=== PATIENT | male | born 1960 | race Caucasian/White ===

== ENCOUNTER 2018-03-15 11:11 | Inpatient (IN) | payer OTHER ==
[2018-03-15 12:28] VITALS: BMI 40.2
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
[2018-03-15] MEDS ORDERED: MAGNESIUM HYDROX 2400MG/30ML ORAL SUSPENSION 30 ML CUP PO PRN (13:42)
[2018-03-15] MEDS ORDERED: hydrOXYzine PAMOATE 50 MG CAPSULE (FP) PO PRN (13:42)
[2018-03-15] MEDS ORDERED: P-EPHED 60MG/TRIPROLIDI 2.5MG TABLET PO PRN (13:42)
[2018-03-15] MEDS ORDERED: chlordiazePOXIDE HCL 25 MG CAPSULE PO PRN (13:42)
[2018-03-15] MEDS ORDERED: NICOTINE POLACRILEX 2 MG GUM BUC PRN (13:42)
[2018-03-15] MEDS ORDERED: MAG HYDROX/AL HYDROX/SIMETH 30 ML UNIT-DOSE CUP PO PRN (13:42)
[2018-03-15] MEDS ORDERED: MENTHOL/PHENOL 1 EACH UD MM PRN (13:42)
[2018-03-15] MEDS ORDERED: ACETAMINOPHEN 325 MG TABLET (FP) PO PRN (13:42)
[2018-03-15] MEDS ORDERED: IBUPROFEN 400 MG TABLET (FP) PO PRN (13:42)
[2018-03-15] MEDS ORDERED: guaiFENesin/D-METHORPHAN HB 10 ML UNIT-DOSE CUPS PO PRN (13:42)
[2018-03-15] MEDS ORDERED: MAGNESIUM CITRATE 300 ML BOTTLE PO PRN (13:42)
[2018-03-15] MEDS ORDERED: LOPERAMIDE HCL 2 MG CAPSULE PO PRN (13:42)
[2018-03-15] MEDS ORDERED: ALBUTEROL SO4 0.083% IH SOL 2.5 MG/3 ML VIAL.NEB. NEB PRN (13:53)
[2018-03-15] MEDS ORDERED: chlordiazePOXIDE HCL 25 MG CAPSULE PO ONE (14:10)
[2018-03-15] MEDS ORDERED: ALBUTEROL SO4 8 GM HFA INHALER IH PRN (14:28)
--- NOTE | 2018-03-15 15:37 | EKG ---
Test Reason : Blood Pressure : / mmHG Vent. Rate : 086 BPM Atrial Rate : 086 BPM P-R Int : 130 ms QRS Dur : 096 ms QT Int : 370 ms P-R-T Axes : 054 005 184 degrees QTc Int : 442 ms NORMAL SINUS RHYTHM LEFT VENTRICULAR HYPERTROPHY WITH REPOLARIZATION ABNORMALITY ABNORMAL ECG NO PREVIOUS ECGS AVAILABLE Confirmed by BING CLINTON, KISHOR ([id number]) on 03/15/2018 3:36:53 PM Referred By: Confirmed By:KISHOR SMART MD
[2018-03-15] MEDS: chlordiazePOXIDE HCL 25 MG CAPSULE PO SCH ×2 (17:08→22:09)
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
[2018-03-15 17:49] LABS: URINE APPEARANCE CLEAR; URINE BILIRUBIN NEGATIVE (<2.0 mg/dL); URINE COLOR STRAW; URINE GLUCOSE (UA) NEGATIVE (NEGATIVE); URINE KETONE NEGATIVE (NEGATIVE); URINE LEUK ESTERASE NEGATIVE (NEGATIVE); URINE NITRITE NEGATIVE (NEGATIVE); URINE PROTEIN NEGATIVE (NEGATIVE); URINE UROBILINOGEN NEGATIVE mg/dL (0.2-1.0)
[2018-03-15] MEDS ORDERED: MELATONIN 5 MG TABLETS PO PRN (22:00)
[2018-03-15] MEDS: THIAMINE HCL 100 MG TABLET (FP) PO SCH (22:09)
[2018-03-15] MEDS: BENZTROPINE MESYLATE 1 MG TABLET (FP) PO SCH (22:09)
[2018-03-15] MEDS: HALOPERIDOL 5 MG TABLET (FP) PO SCH (22:09)
[2018-03-15] MEDS: BUDESONIDE/FORMETEROL FUMARATE 160/4.5 mcg INHALER IH SCH (22:10)
[2018-03-16] MEDS: chlordiazePOXIDE HCL 25 MG CAPSULE PO SCH ×4 (05:06→22:12)
[2018-03-16] MEDS: LEVOTHYROXINE NA 25 MCG TABLET (FP) PO SCH (06:30)
[2018-03-16] MEDS ORDERED: PATIENT'S OWN MEDICATION (NON-FORMULARY) (Lisinopril/Hydrochlorothiazide [Lisinopril-Hctz PO SCH (10:00)
[2018-03-16] MEDS: PRENATAL VITAMINS W/ FOLIC ACID TABLET (FP) PO SCH (10:24)
[2018-03-16] MEDS: CITALOPRAM HYDROBROMIDE 20 MG TABLET (FP) PO SCH (10:24)
[2018-03-16] MEDS: HYDROCHLOROTHIAZIDE 12.5 MG CAPSULE (FP) PO SCH (10:24)
[2018-03-16] MEDS: BENZTROPINE MESYLATE 1 MG TABLET (FP) PO SCH ×2 (10:24→22:12)
[2018-03-16] MEDS: HALOPERIDOL 5 MG TABLET (FP) PO SCH ×2 (10:24→23:23)
[2018-03-16] MEDS: ASPIRIN COATED 81 MG TABLET.EC PO SCH (10:24)
[2018-03-16] MEDS: NICOTINE 21 MG/24 HOURS TOPICAL PATCH TD SCH (10:24)
[2018-03-16] MEDS: LISINOPRIL 20 MG TABLET (FP) PO SCH (10:25)
[2018-03-16] MEDS: BUDESONIDE/FORMETEROL FUMARATE 160/4.5 mcg INHALER IH SCH ×2 (10:25→22:12)
--- NOTE | 2018-03-16 11:01 | PN ---
S CIWA - CIWA Score Nausea/Vomitin Muscle Tremors: 2 Anxiety: 2 Agitation: 1-Slight > Activity Paroxysmal Sweats: 2 Orientation: 0-Oriented Tacttile Disturbances: 0-None Auditory Disturbances: 0-None Visual Disturbances: 0-None Headache: 3-Moderate CIWA-Ar Total Score: 13 BHS Progress Note (SOAP) Subjective: PATIENT PRESENTS WITH HEADACHE, SHAKES AND ANXIETY. Objective: 03/16/18 10:58 Laboratory Tests 03/15/18 15:30 Urine Color Straw Urine Appearance Clear Urine pH 6.0 Ur Specific [place] 1.005 L Urine Protein Negative Urine Glucose (UA) Negative Urine Ketones Negative Urine Blood Negative Urine Nitrite Negative Urine Bilirubin Negative Urine Urobilinogen Negative Ur Leukocyte Esterase Negative Vital Signs Temperature 97.4 F L 03/16/18 09:18 Pulse Rate 90 03/16/18 09:18 Respiratory Rate 18 03/16/18 09:18 Blood Pressure 135/88 03/16/18 09:18 O2 Sat by Pulse Oximetry (%) SKIN WARM AND MOIST CAR S1S2 RESP CTA BL EXT +TREMORS, FULL ROM ALERT AND ORIENTED Assessment: 03/16/18 11:01 WITHDRAWAL SYNDROME Plan: CONTINUE DETOX ENCOURAGE ORAL FLUIDS CONTINUE TO MONITOR CLINICALLY
[2018-03-16 11:11] LABS: HEMATOCRIT 48.2 % (35.4-49); HEMOGLOBIN 15.4 GM/dL (11.7-16.9); MCH 31.3 pg (25.7-33.7); MEAN CELL VOLUME 97.8 fl (80-96); MEAN PLT VOLUME 10.3 fl (7.5-11.1); PLATELET COUNT 264 K/MM3 (134-434); RBC 4.93 M/mm3 (4.00-5.60); RDW 15.1 % (11.9-15.9); WHITE BLOOD COUNT 13.4 K/mm3 (4.0-10.0)
[2018-03-16 11:26] LABS: ALBUMIN 3.8 g/dl (3.4-5.0); ALK PHOS 79 U/L (45-117); ANION GAP 7 MMOL/L (8-16); BILIRUBIN,TOTAL 0.3 mg/dL (0.2-1); BLOOD UREA NITROGEN 12 mg/dL (7-18); CALCIUM 9.8 mg/dL (8.5-10.1); CHLORIDE 104 mmol/L (98-107); CO2 27 mmol/L (21-32); CREATININE 0.9 mg/dL (0.55-1.3); GLUCOSE,RANDOM 83 mg/dL (74-106); POTASSIUM 5.3 mmol/L (3.5-5.1); SGOT/AST 19 U/L (15-37); SGPT/ALT 25 U/L (13-61); SODIUM 138 mmol/L (136-145); TOT PROT 7.7 g/dl (6.4-8.2)
[2018-03-16] MEDS ORDERED: PNEUMOC 13-VAL CONJ-DIP CRM/PF 0.5 ML DISP.SYRIN IM ONE (12:00)
[2018-03-16] MEDS ORDERED: PNEUMOCOCCAL 23 VACCINE 0.5 ML VIAL IM ONE (12:00)
[2018-03-16] MEDS ORDERED: SODIUM POLYSTYRENE SULFONATE 15 GM/60 ML BOTTLE PO ONE (13:46)
[2018-03-16] MEDS: THIAMINE HCL 100 MG TABLET (FP) PO SCH (22:12)
[2018-03-17] MEDS: chlordiazePOXIDE HCL 25 MG CAPSULE PO SCH ×2 (05:09→10:01)
[2018-03-17] MEDS: LEVOTHYROXINE NA 25 MCG TABLET (FP) PO SCH (06:08)
[2018-03-17] MEDS: HYDROCHLOROTHIAZIDE 12.5 MG CAPSULE (FP) PO SCH (09:57)
[2018-03-17] MEDS: LISINOPRIL 20 MG TABLET (FP) PO SCH (09:57)
[2018-03-17] MEDS: PRENATAL VITAMINS W/ FOLIC ACID TABLET (FP) PO SCH (09:57)
[2018-03-17] MEDS: BUDESONIDE/FORMETEROL FUMARATE 160/4.5 mcg INHALER IH SCH ×2 (09:57→23:02)
[2018-03-17] MEDS: ASPIRIN COATED 81 MG TABLET.EC PO SCH (09:57)
[2018-03-17] MEDS: BENZTROPINE MESYLATE 1 MG TABLET (FP) PO SCH ×2 (09:57→23:01)
[2018-03-17] MEDS: CITALOPRAM HYDROBROMIDE 20 MG TABLET (FP) PO SCH (09:57)
[2018-03-17] MEDS: HALOPERIDOL 5 MG TABLET (FP) PO SCH ×2 (09:58→23:02)
[2018-03-17] MEDS: NICOTINE 21 MG/24 HOURS TOPICAL PATCH TD SCH (10:00)
--- NOTE | 2018-03-17 10:02 | PN ---
S CIWA - CIWA Score Nausea/Vomitin Muscle Tremors: 2 Anxiety: 0-No Anxiety, at Ease Agitation: 0-Normal Activity Paroxysmal Sweats: No Perspiration Orientation: 0-Oriented Tacttile Disturbances: 0-None Auditory Disturbances: 0-None Visual Disturbances: 0-None Headache: 1-Very Mild CIWA-Ar Total Score: 5 BHS Progress Note (SOAP) Subjective: PATIENT C/O DIARRHEA (MAY BE KAYEXALATE RELATED), SHAKES. Objective: 03/17/18 10:01 Vital Signs Temperature 99.1 F 03/17/18 09:36 Pulse Rate 74 03/17/18 09:36 Respiratory Rate 18 03/17/18 09:36 Blood Pressure 138/86 03/17/18 09:36 O2 Sat by Pulse Oximetry (%) Laboratory Tests 03/15/18 03/16/18 03/16/18 15:30 06:00 06:00 WBC 13.4 H RBC 4.93 Hgb 15.4 Hct 48.2 MCV 97.8 H MCH 31.3 MCHC 32.0 RDW 15.1 Plt Count 264 MPV 10.3 Sodium 138 Potassium 5.3 H Chloride 104 Carbon Dioxide 27 Anion Gap 7 L BUN 12 Creatinine 0.9 Creat Clearance w eGFR > 60 Random Glucose 83 Calcium 9.8 Total Bilirubin 0.3 AST 19 ALT 25 Alkaline Phosphatase 79 Total Protein 7.7 Albumin 3.8 Urine Color Straw Urine Appearance Clear Urine pH 6.0 Ur Specific [place] 1.005 L Urine Protein Negative Urine Glucose (UA) Negative Urine Ketones Negative Urine Blood Negative Urine Nitrite Negative Urine Bilirubin Negative Urine Urobilinogen Negative Ur Leukocyte Esterase Negative RPR Titer 03/16/18 06:00 WBC RBC Hgb Hct MCV MCH MCHC RDW Plt Count MPV Sodium Potassium Chloride Carbon Dioxide Anion Gap BUN Creatinine Creat Clearance w eGFR Random Glucose Calcium Total Bilirubin AST ALT Alkaline Phosphatase Total Protein Albumin Urine Color Urine Appearance Urine pH Ur Specific [place] Urine Protein Urine Glucose (UA) Urine Ketones Urine Blood Urine Nitrite Urine Bilirubin Urine Urobilinogen Ur Leukocyte Esterase RPR Titer Nonreactive ALERT AND ORIENTED X 3 SKIN WARM AND DRY CAR S1S2 RESP CTA BL GI OBESE, BS+,NT EXT +TREMORS Assessment: 03/17/18 10:01 WITHDRAWAL SYNDROME ELEVATED POTASSIUM/WBC Plan: CONTINUE DETOX AND ORAL FLUIDS REPEAT LABS PENDING CONTINUE TO MONITOR CLINICALLY
[2018-03-17 10:08] LABS: BASO % 0.3 % (0-2.0); EOS % 3.6 % (0-4.5); HEMATOCRIT 42.3 % (35.4-49); HEMOGLOBIN 13.9 GM/dL (11.7-16.9); LYMPH % 25.4 % (8-40); MCH 31.9 pg (25.7-33.7); MCHC 32.8 g/dl (32.0-35.9); MEAN PLT VOLUME 9.1 fl (7.5-11.1); MONO % 6.6 % (3.8-10.2); NEUT % 64.1 % (42.8-82.8); PLATELET COUNT 213 K/MM3 (134-434); RBC 4.36 M/mm3 (4.00-5.60); RDW 15.7 % (11.9-15.9)
[2018-03-17 10:49] LABS: ANION GAP 8 MMOL/L (8-16); BLOOD UREA NITROGEN 9 mg/dL (7-18); CALCIUM 8.7 mg/dL (8.5-10.1); CHLORIDE 102 mmol/L (98-107); CO2 28 mmol/L (21-32); CREATININE 0.7 mg/dL (0.55-1.3); GLUCOSE,RANDOM 88 mg/dL (74-106); POTASSIUM 3.8 mmol/L (3.5-5.1); SODIUM 137 mmol/L (136-145)
[2018-03-17] MEDS: chlordiazePOXIDE 5 MG CAPSULE PO SCH ×2 (17:26→23:02)
[2018-03-17] MEDS: THIAMINE HCL 100 MG TABLET (FP) PO SCH (23:02)
[2018-03-18] MEDS: chlordiazePOXIDE 5 MG CAPSULE PO SCH ×2 (05:16→10:16)
[2018-03-18] MEDS: LEVOTHYROXINE NA 25 MCG TABLET (FP) PO SCH (06:19)
[2018-03-18] MEDS: PRENATAL VITAMINS W/ FOLIC ACID TABLET (FP) PO SCH (10:16)
[2018-03-18] MEDS: BENZTROPINE MESYLATE 1 MG TABLET (FP) PO SCH ×2 (10:16→22:26)
[2018-03-18] MEDS: LISINOPRIL 20 MG TABLET (FP) PO SCH (10:16)
[2018-03-18] MEDS: HYDROCHLOROTHIAZIDE 12.5 MG CAPSULE (FP) PO SCH (10:16)
[2018-03-18] MEDS: CITALOPRAM HYDROBROMIDE 20 MG TABLET (FP) PO SCH (10:16)
[2018-03-18] MEDS: ASPIRIN COATED 81 MG TABLET.EC PO SCH (10:16)
[2018-03-18] MEDS: BUDESONIDE/FORMETEROL FUMARATE 160/4.5 mcg INHALER IH SCH ×2 (10:18→22:26)
[2018-03-18] MEDS: NICOTINE 21 MG/24 HOURS TOPICAL PATCH TD SCH (10:18)
[2018-03-18] MEDS: HALOPERIDOL 5 MG TABLET (FP) PO SCH ×2 (10:19→22:27)
--- NOTE | 2018-03-18 10:31 | PN ---
S Progress Note (SOAP) Subjective: PATIENT D/O DIARRHEA, PRODUCTIVE COUGH WITH YELLOW PHLEGM AND INTERMITTENT COLD SWEATS. Objective: 03/18/18 10:27 Laboratory Tests 03/15/18 03/16/18 03/16/18 15:30 06:00 06:00 WBC 13.4 H RBC 4.93 Hgb 15.4 Hct 48.2 MCV 97.8 H MCH 31.3 MCHC 32.0 RDW 15.1 Plt Count 264 MPV 10.3 Absolute Neuts (auto) Neutrophils % Lymphocytes % Monocytes % Eosinophils % Basophils % Nucleated RBC % Sodium 138 Potassium 5.3 H Chloride 104 Carbon Dioxide 27 Anion Gap 7 L BUN 12 Creatinine 0.9 Creat Clearance w eGFR > 60 Random Glucose 83 Calcium 9.8 Total Bilirubin 0.3 AST 19 ALT 25 Alkaline Phosphatase 79 Total Protein 7.7 Albumin 3.8 Urine Color Straw Urine Appearance Clear Urine pH 6.0 Ur Specific [place] 1.005 L Urine Protein Negative Urine Glucose (UA) Negative Urine Ketones Negative Urine Blood Negative Urine Nitrite Negative Urine Bilirubin Negative Urine Urobilinogen Negative Ur Leukocyte Esterase Negative RPR Titer 03/16/18 03/17/18 03/17/18 06:00 07:30 07:30 WBC 11.0 H RBC 4.36 Hgb 13.9 Hct 42.3 MCV 97.0 H MCH 31.9 MCHC 32.8 RDW 15.7 Plt Count 213 MPV 9.1 D Absolute Neuts (auto) 7.0 Neutrophils % 64.1 Lymphocytes % 25.4 Monocytes % 6.6 Eosinophils % 3.6 Basophils % 0.3 Nucleated RBC % 0 Sodium 137 Potassium 3.8 Chloride 102 Carbon Dioxide 28 Anion Gap 8 BUN 9 Creatinine 0.7 Creat Clearance w eGFR > 60 Random Glucose 88 Calcium 8.7 Total Bilirubin AST ALT Alkaline Phosphatase Total Protein Albumin Urine Color Urine Appearance Urine pH Ur Specific [place] Urine Protein Urine Glucose (UA) Urine Ketones Urine Blood Urine Nitrite Urine Bilirubin Urine Urobilinogen Ur Leukocyte Esterase RPR Titer Nonreactive Vital Signs Temperature 97.8 F 03/18/18 10:07 Pulse Rate 72 03/18/18 10:07 Respiratory Rate 16 03/18/18 10:07 Blood Pressure 132/81 03/18/18 10:07 O2 Sat by Pulse Oximetry (%) SKIN WARM AND MOIST CAR S12 RESP FAINT RHONCHI RUL GI OBESE, NT, BS+ EXT FULL ROM 10/11/18 10:29 Assessment: 03/18/18 10:29 WITHDRAWAL SYNDROME URI 03/18/18 10:30 Plan: CONTINUE DETOX ORAL FLUIDS ENCOURAGED AZITHROMYCIN 250MG PO DAILY X 5 DAYS CONTINUE ROBITUSSIN PRN CONTINUE TO MONITOR CLINICALLY
[2018-03-18] MEDS: AMOXICILLIN 500 MG CAPSULE (FP) PO SCH ×2 (12:06→22:27)
[2018-03-18] MEDS: chlordiazePOXIDE HCL 10 MG CAPSULE PO SCH ×2 (17:55→22:26)
[2018-03-18] MEDS: THIAMINE HCL 100 MG TABLET (FP) PO SCH (22:26)
[2018-03-19] MEDS: chlordiazePOXIDE HCL 10 MG CAPSULE PO SCH ×2 (05:56→10:13)
[2018-03-19] MEDS: LEVOTHYROXINE NA 25 MCG TABLET (FP) PO SCH (06:17)
[2018-03-19] MEDS: ASPIRIN COATED 81 MG TABLET.EC PO SCH (10:10)
[2018-03-19] MEDS: BENZTROPINE MESYLATE 1 MG TABLET (FP) PO SCH (10:10)
[2018-03-19] MEDS: AMOXICILLIN 500 MG CAPSULE (FP) PO SCH (10:10)
[2018-03-19] MEDS: LISINOPRIL 20 MG TABLET (FP) PO SCH (10:10)
[2018-03-19] MEDS: HYDROCHLOROTHIAZIDE 12.5 MG CAPSULE (FP) PO SCH (10:10)
[2018-03-19] MEDS: PRENATAL VITAMINS W/ FOLIC ACID TABLET (FP) PO SCH (10:10)
[2018-03-19] MEDS: CITALOPRAM HYDROBROMIDE 20 MG TABLET (FP) PO SCH (10:10)
[2018-03-19] MEDS: BUDESONIDE/FORMETEROL FUMARATE 160/4.5 mcg INHALER IH SCH (10:11)
[2018-03-19] MEDS: NICOTINE 21 MG/24 HOURS TOPICAL PATCH TD SCH (10:11)
[2018-03-19] MEDS: HALOPERIDOL 5 MG TABLET (FP) PO SCH (10:11)
[2018-03-19 10:19] VITALS: BP 113/76; PULSE 84; TEMP 96.8
--- NOTE | 2018-03-19 12:03 | DS ---
[facility] Detox Discharge Summary Admission Date: 03/15/18 Discharge Date: 03/19/18 - History Present History: Alcohol Dependence - Physical Exam Results Vital Signs: Vital Signs Temperature 96.8 F L 03/19/18 10:17 Pulse Rate 84 03/19/18 10:17 Respiratory Rate 18 03/19/18 10:17 Blood Pressure 113/76 03/19/18 10:17 O2 Sat by Pulse Oximetry (%) Pertinent Admission Physical Exam Findings: PATIENT TOLERATED DETOX WELL. MEDICALLY STABLE. DENIES SI/HI. PATIENT ALERT AND ORIENTED X 3, SKIN WARM AND DRY, AMB AD GRUPO, EXT FULL ROM. PATIENT ACCEPTED REFERRAl TO REHAB AT [address] PATIENT ENCOURAGED TO COMPLETE REHAB TO PREVENT RELAPSE. D/C INSTRUCTIONS PROVIDED TO PATIENT BY STAFF. - Treatment Hospital Course: Detox Protocol Followed, Detoxed Safely, Responded well, Discharged Condition Good, Rehab Referral Accepted Patient has Accepted a Rehab Referral to: [address] [place] [address] - Medication Discharge Medications: Ambulatory Orders Benztropine Mesylate [Cogentin -] 0.5 mg PO HS 03/15/18 Citalopram Hydrobromide [Celexa -] 20 mg PO DAILY 03/15/18 Quetiapine Fumarate [Seroquel -] 200 mg PO HS 03/15/18 Tizanidine HCl 4 mg PO TID PRN 03/15/18 Zolpidem Tartrate 10 mg PO HS 03/15/18 Zolpidem Tartrate [Ambien] 10 mg PO HS 03/15/18 Albuterol Sulfate Inhaler - [Ventolin HFA Inhaler -] 2 puff IH Q4H PRN #1 inhaler 03/17/18 Aspirin Coated [Ecotrin -] 81 mg PO DAILY #30 tablet.ec 03/17/18 Fluticasone/Salmeterol [Advair 250-50 Diskus] 1 each IH BID #1 blst.w.dev Levothyroxine [Synthroid -] 75 mcg PO DAILY #30 tablet 03/17/18 Lisinopril/Hydrochlorothiazide [Lisinopril-Hctz 20-12.5 mg Tab] 1 each PO DAILY #30 tablet 03/17/18 Amoxicillin - [Amoxicillin 500mg Capsule -] 500 mg PO BID 6 Days #12 capsule 04/25 - Diagnosis (1) Alcohol dependence with withdrawal Current Visit: Yes Status: Resolved Qualifiers: Complication of substance-induced condition: uncomplicated Qualified Code(s ): F10.230 - Alcohol dependence with withdrawal, uncomplicated (2) URI (upper respiratory infection) Current Visit: Yes Status: Acute Qualifiers: URI type: unspecified URI Qualified Code(s): J06.9 - Acute upper respiratory infection, unspecified - AMA Did Patient Leave Against Medical Advice: No
== END 2018-03-19 13:20 | disposition other institution (70) | DRG 774 ==
LOC: YASAS 11:11 → Y3N 13:45
PROC: HZ2ZZZZ Detoxification Services for Substance Abuse Treatment (ICD-10-PCS; principal; 2018-03-15)
DX: F10.230 Alcohol dependence with withdrawal, uncomplicated (principal); F14.20 Cocaine dependence, uncomplicated; F17.210 Nicotine dependence, cigarettes, uncomplicated; F19.24 Other psychoactive substance dependence with psychoactive substance-induced mood disorder; F20.9 Schizophrenia, unspecified; F29 Unspecified psychosis not due to a substance or known physiological condition; I10 Essential (primary) hypertension; J06.9 Acute upper respiratory infection, unspecified; I25.2 Old myocardial infarction; D72.829 Elevated white blood cell count, unspecified; E87.5 Hyperkalemia; E78.5 Hyperlipidemia, unspecified; G47.00 Insomnia, unspecified; H40.9 Unspecified glaucoma; H54.40 Blindness, one eye, unspecified eye; J45.909 Unspecified asthma, uncomplicated; E66.9 Obesity, unspecified; Z68.41 Body mass index [BMI] 40.0-44.9, adult; R26.2 Difficulty in walking, not elsewhere classified; Z99.89 Dependence on other enabling machines and devices; Z87.438 Personal history of other diseases of male genital organs; Z91.5 Personal history of self-harm
CPT/HCPCS: 36415; 80048; 80053; 81003; 85025; 85027; 86593; 90732; 93005; 93010; G0009

== ENCOUNTER 2018-03-19 13:30 | Inpatient (IN) | payer OTHER ==
[2018-03-19] MEDS ORDERED: NICOTINE POLACRILEX 2 MG GUM BUC PRN (14:00)
[2018-03-19] MEDS ORDERED: P-EPHED 60MG/TRIPROLIDI 2.5MG TABLET PO PRN (14:00)
[2018-03-19] MEDS ORDERED: IBUPROFEN 400 MG TABLET (FP) PO PRN (14:00)
[2018-03-19] MEDS ORDERED: hydrOXYzine PAMOATE 50 MG CAPSULE (FP) PO PRN (14:00)
[2018-03-19] MEDS ORDERED: guaiFENesin/D-METHORPHAN HB 10 ML UNIT-DOSE CUPS PO PRN (14:00)
[2018-03-19] MEDS ORDERED: MAGNESIUM CITRATE 300 ML BOTTLE PO PRN (14:00)
[2018-03-19] MEDS ORDERED: MAG HYDROX/AL HYDROX/SIMETH 30 ML UNIT-DOSE CUP PO PRN (14:00)
[2018-03-19] MEDS ORDERED: MAGNESIUM HYDROX 2400MG/30ML ORAL SUSPENSION 30 ML CUP PO PRN (14:00)
[2018-03-19] MEDS ORDERED: MENTHOL/PHENOL 1 EACH UD MM PRN (14:00)
[2018-03-19] MEDS ORDERED: ACETAMINOPHEN 325 MG TABLET (FP) PO PRN (14:00)
[2018-03-19] MEDS ORDERED: LOPERAMIDE HCL 2 MG CAPSULE PO PRN (14:00)
[2018-03-19] MEDS ORDERED: ALBUTEROL SO4 8 GM HFA INHALER IH PRN (14:01)
[2018-03-19] MEDS ORDERED: ALBUTEROL SO4 0.083% IH SOL 2.5 MG/3 ML VIAL.NEB. NEB PRN (14:01)
--- NOTE | 2018-03-19 14:06 | HP ---
[facility] Rehab Assess/Revision - Admission History Ad[facility] Rehab [facility] - Findings Detox History & Physical reviewed: Yes Concur with findings: Yes Inpatient Rehab Admission - Initial Determination Are CD services needed?: Yes Free of communicable disease: Yes Not in need of hospitalization: Yes - Rehab Admission Criteria Previous failed treatment: Yes Poor recovery environment: Yes Comorbidities: Yes Lacks judgement: No Patient is meeting Inpatient Rehab admission criteria:: Yes
[2018-03-19] MEDS ORDERED: diphenhydrAMINE HCL 50 MG CAPSULE PO PRN (15:04)
--- NOTE | 2018-03-19 15:05 | HP ---
Psychiatrist Admission - Data Date of interview: 03/19/18 Admission source: [address] [place] [address] Identifying data: This is the first admission to [address] [place] [address] rehabilitation for this 57 years old single father of 36 yo daughter,homeless, supported by [facility]. Psychiatric History: patient has long and extensive psychiatric history.He was dx with Schizophrenia .patient reports 3 psychiatric hospitalizations to [facility], most recent was 8 yo.Reports a few suicidal attempts many years ago (cutting himself).Patient sees psychiatrist at [facility] in the [place] .Current medications :Celexa 20 mg po daily ,Seroquel 200 mg po hs ,Cogentin 0,5 mg po hs.patine in on Haldol Decanoate 100 mg IM (last injection was given 2 weeks ago ). Physical/Sexual Abuse/Trauma History: denies Vital Signs: Vital Signs - 24 hr 03/19/18 14:31 Temperature 98.6 F Pulse Rate 83 Respiratory 17 Rate Blood Pressure 120/68 Allergies/Adverse Reactions: Allergies Allergy/AdvReac Type Severity Reaction Status Date / Time No Known Allergies Allergy Verified 03/19/18 13:49 Concur with the findings of this exam: Yes - Substance Abuse/Tx History Hx Alcohol Use: Yes Hx Substance Use: Yes Substance Use Type: Alcohol, Cocaine Hx Substance Use Treatment: Yes (completed longterm inpatient about 8 years ago ) Mental Status Exam - Mental Status Exam Alert and Oriented to: Time, Place, Person Cognitive Function: Grossly Intact Patient Appearance: Well Groomed Mood: Anxious Affect: Mood Congruent, Labile Patient Behavior: Cooperative Speech Pattern: Clear Voice Loudness: Normal Thought Process: Goal Oriented Thought Disorder: Not Present Hallucinations: Denies Suicidal Ideation: Denies Homicidal Ideation: Denies Insight/Judgement: Fair Sleep: Fair Appetite: Good Muscle strength/Tone: Normal Gait/Station: Normal Psychiatric Findings - Problem List ([place] 1, 2,3) (1) Asthma Current Visit: Yes Status: Chronic Qualifiers: (2) Cocaine dependence Current Visit: Yes Status: Chronic Qualifiers: (3) Nicotine dependence Current Visit: Yes Status: Chronic (4) Substance induced mood disorder Current Visit: Yes Status: Chronic (5) Glaucoma Current Visit: Yes Status: Chronic (6) Hyperlipidemia Current Visit: Yes Status: Chronic
[2018-03-19] MEDS: BUDESONIDE/FORMETEROL FUMARATE 80/4.5 mcg INHALER IH SCH (21:07)
[2018-03-19] MEDS: THIAMINE HCL 100 MG TABLET (FP) PO SCH (21:07)
[2018-03-19] MEDS: AMOXICILLIN 500 MG CAPSULE (FP) PO SCH (21:07)
[2018-03-19] MEDS: BENZTROPINE MESYLATE 1 MG TABLET (FP) PO SCH (21:08)
[2018-03-19] MEDS: QUEtiapine FUMARATE 200 MG TABLET PO SCH (21:08)
[2018-03-19] MEDS ORDERED: MELATONIN 5 MG TABLETS PO PRN (22:00)
[2018-03-20] MEDS: LEVOTHYROXINE NA 25 MCG TABLET (FP) PO SCH (06:42)
[2018-03-20] MEDS: ASPIRIN 81 MG CHEWABLE TABLETS PO SCH (09:50)
[2018-03-20] MEDS: LISINOPRIL 20 MG TABLET (FP) PO SCH (09:50)
[2018-03-20] MEDS: HYDROCHLOROTHIAZIDE 12.5 MG CAPSULE (FP) PO SCH (09:50)
[2018-03-20] MEDS: AMOXICILLIN 500 MG CAPSULE (FP) PO SCH ×2 (09:50→21:06)
[2018-03-20] MEDS: BUDESONIDE/FORMETEROL FUMARATE 80/4.5 mcg INHALER IH SCH ×2 (09:50→21:06)
[2018-03-20] MEDS: PRENATAL VITAMINS W/ FOLIC ACID TABLET (FP) PO SCH (09:50)
[2018-03-20] MEDS: CITALOPRAM HYDROBROMIDE 20 MG TABLET (FP) PO SCH (09:50)
[2018-03-20] MEDS: NICOTINE 21 MG/24 HOURS TOPICAL PATCH TD SCH (09:51)
[2018-03-20] MEDS: BENZTROPINE MESYLATE 1 MG TABLET (FP) PO SCH (21:05)
[2018-03-20] MEDS: THIAMINE HCL 100 MG TABLET (FP) PO SCH (21:06)
[2018-03-20] MEDS: QUEtiapine FUMARATE 200 MG TABLET PO SCH (21:06)
[2018-03-21] MEDS: LEVOTHYROXINE NA 25 MCG TABLET (FP) PO SCH (06:30)
[2018-03-21] MEDS: AMOXICILLIN 500 MG CAPSULE (FP) PO SCH ×2 (09:58→21:00)
[2018-03-21] MEDS: ASPIRIN 81 MG CHEWABLE TABLETS PO SCH (09:58)
[2018-03-21] MEDS: HYDROCHLOROTHIAZIDE 12.5 MG CAPSULE (FP) PO SCH (09:58)
[2018-03-21] MEDS: LISINOPRIL 20 MG TABLET (FP) PO SCH (09:58)
[2018-03-21] MEDS: NICOTINE 21 MG/24 HOURS TOPICAL PATCH TD SCH (09:59)
[2018-03-21] MEDS: BUDESONIDE/FORMETEROL FUMARATE 80/4.5 mcg INHALER IH SCH ×2 (09:59→21:01)
[2018-03-21] MEDS: CITALOPRAM HYDROBROMIDE 20 MG TABLET (FP) PO SCH (09:59)
[2018-03-21] MEDS: PRENATAL VITAMINS W/ FOLIC ACID TABLET (FP) PO SCH (09:59)
[2018-03-21] MEDS: BENZTROPINE MESYLATE 1 MG TABLET (FP) PO SCH (21:00)
[2018-03-21] MEDS: QUEtiapine FUMARATE 200 MG TABLET PO SCH (21:00)
[2018-03-21] MEDS: THIAMINE HCL 100 MG TABLET (FP) PO SCH (21:00)
[2018-03-22] MEDS: LEVOTHYROXINE NA 25 MCG TABLET (FP) PO SCH (06:58)
[2018-03-22] MEDS: ASPIRIN 81 MG CHEWABLE TABLETS PO SCH (10:08)
[2018-03-22] MEDS: BUDESONIDE/FORMETEROL FUMARATE 80/4.5 mcg INHALER IH SCH ×2 (10:08→21:27)
[2018-03-22] MEDS: LISINOPRIL 20 MG TABLET (FP) PO SCH (10:08)
[2018-03-22] MEDS: CITALOPRAM HYDROBROMIDE 20 MG TABLET (FP) PO SCH (10:08)
[2018-03-22] MEDS: AMOXICILLIN 500 MG CAPSULE (FP) PO SCH ×2 (10:08→21:27)
[2018-03-22] MEDS: PRENATAL VITAMINS W/ FOLIC ACID TABLET (FP) PO SCH (10:08)
[2018-03-22] MEDS: NICOTINE 21 MG/24 HOURS TOPICAL PATCH TD SCH (10:09)
[2018-03-22] MEDS: HYDROCHLOROTHIAZIDE 12.5 MG CAPSULE (FP) PO SCH (12:33)
[2018-03-22] MEDS: QUEtiapine FUMARATE 200 MG TABLET PO SCH (21:27)
[2018-03-22] MEDS: THIAMINE HCL 100 MG TABLET (FP) PO SCH (21:27)
[2018-03-22] MEDS: BENZTROPINE MESYLATE 1 MG TABLET (FP) PO SCH (21:28)
[2018-03-23] MEDS: LEVOTHYROXINE NA 25 MCG TABLET (FP) PO SCH (06:59)
[2018-03-23] MEDS: BUDESONIDE/FORMETEROL FUMARATE 80/4.5 mcg INHALER IH SCH ×2 (09:35→21:05)
[2018-03-23] MEDS: NICOTINE 21 MG/24 HOURS TOPICAL PATCH TD SCH (09:36)
[2018-03-23] MEDS: PRENATAL VITAMINS W/ FOLIC ACID TABLET (FP) PO SCH (09:36)
[2018-03-23] MEDS: LISINOPRIL 20 MG TABLET (FP) PO SCH (09:36)
[2018-03-23] MEDS: CITALOPRAM HYDROBROMIDE 20 MG TABLET (FP) PO SCH (09:36)
[2018-03-23] MEDS: HYDROCHLOROTHIAZIDE 12.5 MG CAPSULE (FP) PO SCH (09:36)
[2018-03-23] MEDS: ASPIRIN 81 MG CHEWABLE TABLETS PO SCH (09:36)
[2018-03-23] MEDS: AMOXICILLIN 500 MG CAPSULE (FP) PO SCH ×2 (09:36→21:04)
[2018-03-23] MEDS: QUEtiapine FUMARATE 200 MG TABLET PO SCH (21:04)
[2018-03-23] MEDS: THIAMINE HCL 100 MG TABLET (FP) PO SCH (21:04)
[2018-03-23] MEDS: BENZTROPINE MESYLATE 1 MG TABLET (FP) PO SCH (21:05)
[2018-03-24] MEDS: LEVOTHYROXINE NA 25 MCG TABLET (FP) PO SCH (06:35)
[2018-03-24] MEDS: ASPIRIN 81 MG CHEWABLE TABLETS PO SCH (09:37)
[2018-03-24] MEDS: PRENATAL VITAMINS W/ FOLIC ACID TABLET (FP) PO SCH (09:38)
[2018-03-24] MEDS: NICOTINE 21 MG/24 HOURS TOPICAL PATCH TD SCH (09:38)
[2018-03-24] MEDS: CITALOPRAM HYDROBROMIDE 20 MG TABLET (FP) PO SCH (09:38)
[2018-03-24] MEDS: BUDESONIDE/FORMETEROL FUMARATE 80/4.5 mcg INHALER IH SCH ×2 (09:38→22:01)
[2018-03-24] MEDS: AMOXICILLIN 500 MG CAPSULE (FP) PO SCH ×2 (09:38→21:09)
[2018-03-24] MEDS: LISINOPRIL 20 MG TABLET (FP) PO SCH (09:38)
[2018-03-24] MEDS: HYDROCHLOROTHIAZIDE 12.5 MG CAPSULE (FP) PO SCH (09:38)
[2018-03-24] MEDS: QUEtiapine FUMARATE 200 MG TABLET PO SCH (21:09)
[2018-03-24] MEDS: BENZTROPINE MESYLATE 1 MG TABLET (FP) PO SCH (21:09)
[2018-03-24] MEDS: THIAMINE HCL 100 MG TABLET (FP) PO SCH (21:09)
[2018-03-25] MEDS: LEVOTHYROXINE NA 25 MCG TABLET (FP) PO SCH (06:17)
[2018-03-25] MEDS: NICOTINE 21 MG/24 HOURS TOPICAL PATCH TD SCH (09:40)
[2018-03-25] MEDS: AMOXICILLIN 500 MG CAPSULE (FP) PO SCH (09:41)
[2018-03-25] MEDS: ASPIRIN 81 MG CHEWABLE TABLETS PO SCH (09:41)
[2018-03-25] MEDS: HYDROCHLOROTHIAZIDE 12.5 MG CAPSULE (FP) PO SCH (09:41)
[2018-03-25] MEDS: PRENATAL VITAMINS W/ FOLIC ACID TABLET (FP) PO SCH (09:42)
[2018-03-25] MEDS: CITALOPRAM HYDROBROMIDE 20 MG TABLET (FP) PO SCH (09:42)
[2018-03-25] MEDS: LISINOPRIL 20 MG TABLET (FP) PO SCH (09:42)
[2018-03-25] MEDS: BUDESONIDE/FORMETEROL FUMARATE 80/4.5 mcg INHALER IH SCH ×2 (09:42→21:06)
[2018-03-25] MEDS: THIAMINE HCL 100 MG TABLET (FP) PO SCH (21:06)
[2018-03-25] MEDS: QUEtiapine FUMARATE 200 MG TABLET PO SCH (21:06)
[2018-03-25] MEDS: BENZTROPINE MESYLATE 1 MG TABLET (FP) PO SCH (21:06)
[2018-03-26] MEDS: LEVOTHYROXINE NA 25 MCG TABLET (FP) PO SCH (06:43)
[2018-03-26] MEDS: LISINOPRIL 20 MG TABLET (FP) PO SCH (09:20)
[2018-03-26] MEDS: HYDROCHLOROTHIAZIDE 12.5 MG CAPSULE (FP) PO SCH (09:20)
[2018-03-26] MEDS: CITALOPRAM HYDROBROMIDE 20 MG TABLET (FP) PO SCH (09:20)
[2018-03-26] MEDS: PRENATAL VITAMINS W/ FOLIC ACID TABLET (FP) PO SCH (09:20)
[2018-03-26] MEDS: ASPIRIN 81 MG CHEWABLE TABLETS PO SCH (09:20)
[2018-03-26] MEDS: BUDESONIDE/FORMETEROL FUMARATE 80/4.5 mcg INHALER IH SCH ×2 (09:20→21:05)
[2018-03-26] MEDS: NICOTINE 21 MG/24 HOURS TOPICAL PATCH TD SCH (09:20)
[2018-03-26] MEDS: QUEtiapine FUMARATE 200 MG TABLET PO SCH (21:05)
[2018-03-26] MEDS: BENZTROPINE MESYLATE 1 MG TABLET (FP) PO SCH (21:05)
[2018-03-26] MEDS: THIAMINE HCL 100 MG TABLET (FP) PO SCH (21:05)
[2018-03-27] MEDS: LEVOTHYROXINE NA 25 MCG TABLET (FP) PO SCH (06:19)
[2018-03-27] MEDS: CITALOPRAM HYDROBROMIDE 20 MG TABLET (FP) PO SCH (09:31)
[2018-03-27] MEDS: ASPIRIN 81 MG CHEWABLE TABLETS PO SCH (09:31)
[2018-03-27] MEDS: NICOTINE 21 MG/24 HOURS TOPICAL PATCH TD SCH (09:31)
[2018-03-27] MEDS: HYDROCHLOROTHIAZIDE 12.5 MG CAPSULE (FP) PO SCH (09:31)
[2018-03-27] MEDS: LISINOPRIL 20 MG TABLET (FP) PO SCH (09:31)
[2018-03-27] MEDS: PRENATAL VITAMINS W/ FOLIC ACID TABLET (FP) PO SCH (09:31)
[2018-03-27] MEDS: BUDESONIDE/FORMETEROL FUMARATE 80/4.5 mcg INHALER IH SCH ×2 (09:31→21:03)
[2018-03-27] MEDS: THIAMINE HCL 100 MG TABLET (FP) PO SCH (21:03)
[2018-03-27] MEDS: QUEtiapine FUMARATE 200 MG TABLET PO SCH (21:03)
[2018-03-27] MEDS: BENZTROPINE MESYLATE 1 MG TABLET (FP) PO SCH (21:03)
[2018-03-28] MEDS: LEVOTHYROXINE NA 25 MCG TABLET (FP) PO SCH (06:32)
[2018-03-28] MEDS: ASPIRIN 81 MG CHEWABLE TABLETS PO SCH (09:29)
[2018-03-28] MEDS: BUDESONIDE/FORMETEROL FUMARATE 80/4.5 mcg INHALER IH SCH ×2 (09:29→21:07)
[2018-03-28] MEDS: PRENATAL VITAMINS W/ FOLIC ACID TABLET (FP) PO SCH (09:29)
[2018-03-28] MEDS: CITALOPRAM HYDROBROMIDE 20 MG TABLET (FP) PO SCH (09:29)
[2018-03-28] MEDS: NICOTINE 21 MG/24 HOURS TOPICAL PATCH TD SCH (09:30)
[2018-03-28] MEDS: LISINOPRIL 20 MG TABLET (FP) PO SCH (09:30)
[2018-03-28] MEDS: HYDROCHLOROTHIAZIDE 12.5 MG CAPSULE (FP) PO SCH (09:30)
[2018-03-28] MEDS: BENZTROPINE MESYLATE 1 MG TABLET (FP) PO SCH (21:07)
[2018-03-28] MEDS: THIAMINE HCL 100 MG TABLET (FP) PO SCH (21:07)
[2018-03-28] MEDS: QUEtiapine FUMARATE 200 MG TABLET PO SCH (21:07)
[2018-03-29] MEDS: LEVOTHYROXINE NA 25 MCG TABLET (FP) PO SCH (06:17)
[2018-03-29] MEDS: BUDESONIDE/FORMETEROL FUMARATE 80/4.5 mcg INHALER IH SCH ×2 (09:37→21:04)
[2018-03-29] MEDS: CITALOPRAM HYDROBROMIDE 20 MG TABLET (FP) PO SCH (09:38)
[2018-03-29] MEDS: LISINOPRIL 20 MG TABLET (FP) PO SCH (09:38)
[2018-03-29] MEDS: ASPIRIN 81 MG CHEWABLE TABLETS PO SCH (09:38)
[2018-03-29] MEDS: HYDROCHLOROTHIAZIDE 12.5 MG CAPSULE (FP) PO SCH (09:38)
[2018-03-29] MEDS: PRENATAL VITAMINS W/ FOLIC ACID TABLET (FP) PO SCH (09:38)
[2018-03-29] MEDS: NICOTINE 21 MG/24 HOURS TOPICAL PATCH TD SCH (09:38)
[2018-03-29] MEDS: THIAMINE HCL 100 MG TABLET (FP) PO SCH (21:04)
[2018-03-29] MEDS: QUEtiapine FUMARATE 200 MG TABLET PO SCH (21:04)
[2018-03-29] MEDS: BENZTROPINE MESYLATE 1 MG TABLET (FP) PO SCH (21:04)
[2018-03-30] MEDS: LEVOTHYROXINE NA 25 MCG TABLET (FP) PO SCH (06:21)
[2018-03-30] MEDS: NICOTINE 21 MG/24 HOURS TOPICAL PATCH TD SCH (09:25)
[2018-03-30] MEDS: BUDESONIDE/FORMETEROL FUMARATE 80/4.5 mcg INHALER IH SCH ×2 (09:25→21:02)
[2018-03-30] MEDS: CITALOPRAM HYDROBROMIDE 20 MG TABLET (FP) PO SCH (09:25)
[2018-03-30] MEDS: LISINOPRIL 20 MG TABLET (FP) PO SCH (09:25)
[2018-03-30] MEDS: PRENATAL VITAMINS W/ FOLIC ACID TABLET (FP) PO SCH (09:25)
[2018-03-30] MEDS: HYDROCHLOROTHIAZIDE 12.5 MG CAPSULE (FP) PO SCH (09:25)
[2018-03-30] MEDS: ASPIRIN 81 MG CHEWABLE TABLETS PO SCH (09:25)
[2018-03-30] MEDS: BENZTROPINE MESYLATE 1 MG TABLET (FP) PO SCH (21:03)
[2018-03-30] MEDS: QUEtiapine FUMARATE 200 MG TABLET PO SCH (21:03)
[2018-03-30] MEDS: THIAMINE HCL 100 MG TABLET (FP) PO SCH (21:03)
[2018-03-31] MEDS: LEVOTHYROXINE NA 25 MCG TABLET (FP) PO SCH (06:39)
[2018-03-31] MEDS: BUDESONIDE/FORMETEROL FUMARATE 80/4.5 mcg INHALER IH SCH ×2 (09:49→22:36)
[2018-03-31] MEDS: PRENATAL VITAMINS W/ FOLIC ACID TABLET (FP) PO SCH (09:50)
[2018-03-31] MEDS: ASPIRIN 81 MG CHEWABLE TABLETS PO SCH (09:50)
[2018-03-31] MEDS: CITALOPRAM HYDROBROMIDE 20 MG TABLET (FP) PO SCH (09:50)
[2018-03-31] MEDS: NICOTINE 21 MG/24 HOURS TOPICAL PATCH TD SCH (09:50)
[2018-03-31] MEDS: HYDROCHLOROTHIAZIDE 12.5 MG CAPSULE (FP) PO SCH (09:51)
[2018-03-31] MEDS: LISINOPRIL 20 MG TABLET (FP) PO SCH (09:51)
[2018-03-31] MEDS: QUEtiapine FUMARATE 200 MG TABLET PO SCH (21:03)
[2018-03-31] MEDS: THIAMINE HCL 100 MG TABLET (FP) PO SCH (21:04)
[2018-03-31] MEDS: BENZTROPINE MESYLATE 1 MG TABLET (FP) PO SCH (21:04)
[2018-04-01] MEDS: LEVOTHYROXINE NA 25 MCG TABLET (FP) PO SCH (06:16)
[2018-04-01] MEDS: BUDESONIDE/FORMETEROL FUMARATE 80/4.5 mcg INHALER IH SCH ×2 (09:41→21:07)
[2018-04-01] MEDS: PRENATAL VITAMINS W/ FOLIC ACID TABLET (FP) PO SCH (09:42)
[2018-04-01] MEDS: LISINOPRIL 20 MG TABLET (FP) PO SCH (09:42)
[2018-04-01] MEDS: CITALOPRAM HYDROBROMIDE 20 MG TABLET (FP) PO SCH (09:42)
[2018-04-01] MEDS: HYDROCHLOROTHIAZIDE 12.5 MG CAPSULE (FP) PO SCH (09:42)
[2018-04-01] MEDS: ASPIRIN 81 MG CHEWABLE TABLETS PO SCH (09:42)
[2018-04-01] MEDS: NICOTINE 21 MG/24 HOURS TOPICAL PATCH TD SCH (09:42)
[2018-04-01] MEDS: LISINOPRIL 10 MG TABLET (FP) PO SCH (11:09)
--- NOTE | 2018-04-01 14:16 | PN ---
[facility] Progress Note Note: Psychiatric nurse practitioner note: Railroad Yard Worker met with patient as per nursing request due do nursing staff suggesting that patient may be depressed. Chart reviewed. Patient is indonesian speaking. Railroad Yard Worker able to speak to patient concerning his current mood. He reports feeling fine but states he feels "down" at times because the groups are spoken in Georgian. Patient informed that auto service writer will speak to his counselor concerning this problem. Patient satisfied and receptive to feedback.
[2018-04-01] MEDS: BENZTROPINE MESYLATE 1 MG TABLET (FP) PO SCH (21:06)
[2018-04-01] MEDS: QUEtiapine FUMARATE 200 MG TABLET PO SCH (21:06)
[2018-04-01] MEDS: THIAMINE HCL 100 MG TABLET (FP) PO SCH (21:06)
[2018-04-02] MEDS: LEVOTHYROXINE NA 25 MCG TABLET (FP) PO SCH (06:06)
--- NOTE | 2018-04-02 07:28 | PN ---
Psychiatric Progress Note Vital Signs: Vital Signs Period Temp Pulse Resp BP Sys/[place] Pulse Ox Last 24 Hr 98.5 F-99 F 69-78 16-18 98-130/60-76 Date of Session: 04/02/18 Chief Complaint:: Discharge Note HPI: Patient addressing Cocaine Dependence comorbid with Nicotine Dependence, Schizophrenia and Substance-Induced Mood Disorder ROS: Asthma, HLD, Glaucoma were medically managed Current Medications: Active Medications Generic Name Dose Route Start Last Admin Trade Name Freq PRN Reason Stop Dose Admin Acetaminophen 650 mg 03/19/18 14:00 03/31/18 15:00 Tylenol - PO 650 mg Q4H PRN Administration FEVER Al Hydroxide/Mg Hydroxide 30 ml 03/19/18 14:00 Mylanta Oral Suspension - PO Q6H PRN DYSPEPSIA Albuterol Sulfate 2 puff 03/19/18 14:01 Ventolin Hfa Inhaler - IH Q4H PRN SHORT OF BREATH/WHEEZING Aspirin 81 mg 03/20/18 10:00 04/01/18 09:42 Asa - PO 81 mg DAILY KIRTI Administration Benztropine Mesylate 0.5 mg 03/19/18 22:00 04/01/18 21:06 Cogentin - PO 0.5 mg HS KIRTI Administration Budesonide/Formoterol Fumarate 2 puff 03/19/18 22:00 04/01/18 21:07 Symbicort 80/4.5mcg - IH Not Given BID KIRTI Citalopram Hydrobromide 20 mg 03/20/18 10:00 04/01/18 09:42 Celexa - PO 20 mg DAILY KIRTI Administration Diphenhydramine HCl 50 mg 03/19/18 15:04 Benadryl - PO HS PRN INSOMNIA Eucalyptus/Menthol/Phenol/Sorbitol 1 each 03/19/18 14:00 Cepastat Lozenge - MM Q4H PRN SORE THROAT Guaifenesin 10 ml 03/19/18 14:00 Robitussin Dm - PO Q6H PRN COUGH Hydrochlorothiazide 12.5 mg 03/20/18 10:00 04/01/18 09:42 Hctz - PO Not Given DAILY KIRTI Hydroxyzine Pamoate 50 mg 03/19/18 14:00 Vistaril - PO Q4H PRN AGITATION Ibuprofen 400 mg 03/19/18 14:00 03/24/18 21:09 Motrin - PO 400 mg Q6H PRN Administration Pain Level 4-6 Levothyroxine Sodium 75 mcg 03/20/18 07:00 04/02/18 06:06 Synthroid - PO 75 mcg DAILY@0700 KIRTI Administration Lisinopril 10 mg 04/01/18 10:35 04/01/18 11:09 Prinivil PO Not Given DAILY KIRTI Loperamide HCl 4 mg 03/19/18 14:00 Imodium - PO Q6H PRN DIARRHEA Magnesium Citrate 300 ml 03/19/18 14:00 Citroma - PO Q48H PRN CONSTIPATION Magnesium Hydroxide 30 ml 03/19/18 14:00 Milk Of Magnesia - PO DAILY PRN CONSTIPATION Melatonin 5 mg 03/19/18 22:00 03/25/18 21:07 Melatonin PO 5 mg HS PRN Administration INSOMNIA Nicotine 21 mg 03/20/18 10:00 04/01/18 09:42 Nicoderm Patch - TD Not Given DAILY KIRTI Nicotine Polacrilex 2 mg 03/19/18 14:00 Nicorette Gum - BUC Q2H PRN NICOTINE REPLACEMENT RX Multivit/Folic Acid/Iron 1 tab 03/20/18 10:00 04/01/18 09:42 Vitamins (Sjr) - PO 1 tab DAILY KIRTI Administration Pseudoephedrine/Triprolidine 1 combo 03/19/18 14:00 Actifed - PO TID PRN NASAL CONGESTION Quetiapine Fumarate 200 mg 03/19/18 22:00 04/01/18 21:06 Seroquel - PO 200 mg HS KIRTI Administration Thiamine HCl 100 mg 03/19/18 22:00 04/01/18 21:06 Vitamin B1 - PO 100 mg HS KIRTI Administration Current Side Effect: No Lab tests ordered: Yes Lab tests reviewed: Yes Provider note:: Patient has completed this program today. He has met his tretment goals and will continue to address his issues in [facility] residential treatment at [facility] at [address] [place] [address]. 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 He responded well to Celexa 20 mg po daily, Cogentin 0.5 mg po HS and Seroquel 200 mg po HS. Scripts for 30 days supply of these medications are electronically transmitted to [facility] at [address] [place] [address]. He is stable for discharge today Total face to face time:: 35 Psychiatric Treatment Plan - Problem List (1) Cocaine dependence Current Visit: Yes Qualifiers: (2) Nicotine dependence Current Visit: Yes (3) Schizophrenia Current Visit: Yes (4) Substance induced mood disorder Current Visit: Yes (5) Asthma Current Visit: Yes Qualifiers: (6) Glaucoma Current Visit: Yes (7) Hyperlipidemia Current Visit: Yes Initial treatment plan: Patient is discharged today and referred to [facility]
[2018-04-02] MEDS: NICOTINE 21 MG/24 HOURS TOPICAL PATCH TD SCH (09:48)
[2018-04-02] MEDS: ASPIRIN 81 MG CHEWABLE TABLETS PO SCH (09:48)
[2018-04-02] MEDS: HYDROCHLOROTHIAZIDE 12.5 MG CAPSULE (FP) PO SCH (09:48)
[2018-04-02] MEDS: LISINOPRIL 10 MG TABLET (FP) PO SCH (09:48)
[2018-04-02] MEDS: PRENATAL VITAMINS W/ FOLIC ACID TABLET (FP) PO SCH (09:48)
[2018-04-02] MEDS: CITALOPRAM HYDROBROMIDE 20 MG TABLET (FP) PO SCH (09:48)
[2018-04-02] MEDS: BUDESONIDE/FORMETEROL FUMARATE 80/4.5 mcg INHALER IH SCH ×2 (09:48→21:07)
[2018-04-02] MEDS: QUEtiapine FUMARATE 200 MG TABLET PO SCH (21:06)
[2018-04-02] MEDS: THIAMINE HCL 100 MG TABLET (FP) PO SCH (21:06)
[2018-04-02] MEDS: BENZTROPINE MESYLATE 1 MG TABLET (FP) PO SCH (21:07)
[2018-04-03] MEDS: LEVOTHYROXINE NA 25 MCG TABLET (FP) PO SCH (06:16)
[2018-04-03] MEDS: HYDROCHLOROTHIAZIDE 12.5 MG CAPSULE (FP) PO SCH (09:42)
[2018-04-03] MEDS: ASPIRIN 81 MG CHEWABLE TABLETS PO SCH (09:42)
[2018-04-03] MEDS: CITALOPRAM HYDROBROMIDE 20 MG TABLET (FP) PO SCH (09:42)
[2018-04-03] MEDS: PRENATAL VITAMINS W/ FOLIC ACID TABLET (FP) PO SCH (09:42)
[2018-04-03] MEDS: LISINOPRIL 10 MG TABLET (FP) PO SCH (09:42)
[2018-04-03] MEDS: BUDESONIDE/FORMETEROL FUMARATE 80/4.5 mcg INHALER IH SCH ×2 (09:42→21:05)
[2018-04-03] MEDS: NICOTINE 21 MG/24 HOURS TOPICAL PATCH TD SCH (09:43)
[2018-04-03] MEDS: BENZTROPINE MESYLATE 1 MG TABLET (FP) PO SCH (21:05)
[2018-04-03] MEDS: THIAMINE HCL 100 MG TABLET (FP) PO SCH (21:05)
[2018-04-03] MEDS: QUEtiapine FUMARATE 200 MG TABLET PO SCH (21:05)
[2018-04-04] MEDS: LEVOTHYROXINE NA 25 MCG TABLET (FP) PO SCH (06:09)
[2018-04-04] MEDS: ASPIRIN 81 MG CHEWABLE TABLETS PO SCH (09:18)
[2018-04-04] MEDS: LISINOPRIL 10 MG TABLET (FP) PO SCH (09:18)
[2018-04-04] MEDS: CITALOPRAM HYDROBROMIDE 20 MG TABLET (FP) PO SCH (09:18)
[2018-04-04] MEDS: BUDESONIDE/FORMETEROL FUMARATE 80/4.5 mcg INHALER IH SCH ×2 (09:18→22:27)
[2018-04-04] MEDS: PRENATAL VITAMINS W/ FOLIC ACID TABLET (FP) PO SCH (09:19)
[2018-04-04] MEDS: NICOTINE 21 MG/24 HOURS TOPICAL PATCH TD SCH (09:19)
[2018-04-04] MEDS: HYDROCHLOROTHIAZIDE 12.5 MG CAPSULE (FP) PO SCH (09:19)
[2018-04-04] MEDS: THIAMINE HCL 100 MG TABLET (FP) PO SCH (21:04)
[2018-04-04] MEDS: QUEtiapine FUMARATE 200 MG TABLET PO SCH (21:04)
[2018-04-04] MEDS: BENZTROPINE MESYLATE 1 MG TABLET (FP) PO SCH (21:04)
[2018-04-05] MEDS: LEVOTHYROXINE NA 25 MCG TABLET (FP) PO SCH (06:23)
[2018-04-05] MEDS: BUDESONIDE/FORMETEROL FUMARATE 80/4.5 mcg INHALER IH SCH ×2 (09:59→21:04)
[2018-04-05] MEDS: PRENATAL VITAMINS W/ FOLIC ACID TABLET (FP) PO SCH (10:00)
[2018-04-05] MEDS: ASPIRIN 81 MG CHEWABLE TABLETS PO SCH (10:00)
[2018-04-05] MEDS: CITALOPRAM HYDROBROMIDE 20 MG TABLET (FP) PO SCH (10:00)
[2018-04-05] MEDS: NICOTINE 21 MG/24 HOURS TOPICAL PATCH TD SCH (10:00)
[2018-04-05] MEDS: LISINOPRIL 10 MG TABLET (FP) PO SCH (10:52)
[2018-04-05] MEDS: HYDROCHLOROTHIAZIDE 12.5 MG CAPSULE (FP) PO SCH (10:52)
--- NOTE | 2018-04-05 15:32 | PN ---
[facility] Progress Note Note: PT C/O ITCHY AND WATERY EYES. DENIES ANY EYE REDNESS OR DISCHARGE. NURSE REPORTS LOW BP AND HELD BP MEDS AT 1000 THIS MORNING. Vital Signs - 24 hr 04/05/18 04/05/18 04/05/18 00:30 03:30 06:53 Temperature 98.5 F Pulse Rate 78 Respiratory 18 18 18 Rate Blood Pressure 110/78 04/05/18 10:00 Temperature Pulse Rate 84 Respiratory 17 Rate Blood Pressure 101/60 EYES:NO CONJUCTIVAL REDNESS OR EXUDATES EOMIs INTACT PERRLA PLAN:VISINE [employer]ERGY DIRECTED.
[2018-04-05] MEDS: THIAMINE HCL 100 MG TABLET (FP) PO SCH (21:04)
[2018-04-05] MEDS: NAPHAZOLINE/PHENIRAMINE OPHTHALMIC 15 ML BOTTLE OU SCH (21:05)
[2018-04-05] MEDS: QUEtiapine FUMARATE 200 MG TABLET PO SCH (21:06)
[2018-04-05] MEDS: BENZTROPINE MESYLATE 1 MG TABLET (FP) PO SCH (21:06)
[2018-04-06 07:01] VITALS: TEMP 97.9
[2018-04-06] MEDS: NAPHAZOLINE/PHENIRAMINE OPHTHALMIC 15 ML BOTTLE OU SCH ×3 (07:21→21:02)
[2018-04-06] MEDS: LEVOTHYROXINE NA 25 MCG TABLET (FP) PO SCH (07:22)
[2018-04-06] MEDS: CITALOPRAM HYDROBROMIDE 20 MG TABLET (FP) PO SCH (10:00)
[2018-04-06] MEDS: ASPIRIN 81 MG CHEWABLE TABLETS PO SCH (10:00)
[2018-04-06] MEDS: NICOTINE 21 MG/24 HOURS TOPICAL PATCH TD SCH (10:00)
[2018-04-06] MEDS: PRENATAL VITAMINS W/ FOLIC ACID TABLET (FP) PO SCH (10:00)
[2018-04-06] MEDS: LISINOPRIL 10 MG TABLET (FP) PO SCH (10:00)
[2018-04-06] MEDS: BUDESONIDE/FORMETEROL FUMARATE 80/4.5 mcg INHALER IH SCH ×2 (10:01→21:03)
[2018-04-06] MEDS: QUEtiapine FUMARATE 200 MG TABLET PO SCH (21:02)
[2018-04-06] MEDS: THIAMINE HCL 100 MG TABLET (FP) PO SCH (21:02)
[2018-04-06] MEDS: BENZTROPINE MESYLATE 1 MG TABLET (FP) PO SCH (21:03)
[2018-04-07] MEDS: NAPHAZOLINE/PHENIRAMINE OPHTHALMIC 15 ML BOTTLE OU SCH ×3 (06:18→21:09)
[2018-04-07] MEDS: LEVOTHYROXINE NA 25 MCG TABLET (FP) PO SCH (06:19)
[2018-04-07] MEDS: ASPIRIN 81 MG CHEWABLE TABLETS PO SCH (09:45)
[2018-04-07] MEDS: LISINOPRIL 10 MG TABLET (FP) PO SCH (09:45)
[2018-04-07] MEDS: PRENATAL VITAMINS W/ FOLIC ACID TABLET (FP) PO SCH (09:45)
[2018-04-07] MEDS: NICOTINE 21 MG/24 HOURS TOPICAL PATCH TD SCH (09:45)
[2018-04-07] MEDS: BUDESONIDE/FORMETEROL FUMARATE 80/4.5 mcg INHALER IH SCH ×2 (09:45→21:09)
[2018-04-07] MEDS: CITALOPRAM HYDROBROMIDE 20 MG TABLET (FP) PO SCH (09:45)
[2018-04-07] MEDS: THIAMINE HCL 100 MG TABLET (FP) PO SCH (21:09)
[2018-04-07] MEDS: QUEtiapine FUMARATE 200 MG TABLET PO SCH (21:09)
[2018-04-07] MEDS: BENZTROPINE MESYLATE 1 MG TABLET (FP) PO SCH (21:09)
[2018-04-08] MEDS: NAPHAZOLINE/PHENIRAMINE OPHTHALMIC 15 ML BOTTLE OU SCH (06:27)
[2018-04-08] MEDS: LEVOTHYROXINE NA 25 MCG TABLET (FP) PO SCH (06:27)
[2018-04-08 06:36] VITALS: BP 147/78; PULSE 65
--- NOTE | 2018-04-08 09:21 | PN ---
Psychiatric Progress Note Vital Signs: Vital Signs Period Temp Pulse Resp BP Sys/[place] Pulse Ox Last 24 Hr 97.9 F 65-83 18-20 119-147/65-78 Date of Session: 04/08/18 Chief Complaint:: "Discharge" HPI: Patient was admitted to rehab for alcohol and cocaine dependence. ROS: Multiple medical co-morbidities : hypertension,glaucoma (left eye), blindness (right eye),dyslipidemia,arthritis,antecedent of myocardial infarction ,bronchial asthma,past treatment for syphilis and a history of orthosurgery for fracture of right ankle (hardware in situ) in 2002. Current Medications: Active Medications Generic Name Dose Route Start Last Admin Trade Name Freq PRN Reason Stop Dose Admin Acetaminophen 650 mg 03/19/18 14:00 03/31/18 15:00 Tylenol - PO 650 mg Q4H PRN Administration FEVER Al Hydroxide/Mg Hydroxide 30 ml 03/19/18 14:00 Mylanta Oral Suspension - PO Q6H PRN DYSPEPSIA Albuterol Sulfate 2 puff 03/19/18 14:01 Ventolin Hfa Inhaler - IH Q4H PRN SHORT OF BREATH/WHEEZING Aspirin 81 mg 03/20/18 10:00 04/07/18 09:45 Asa - PO 81 mg DAILY KIRTI Administration Benztropine Mesylate 0.5 mg 03/19/18 22:00 04/07/18 21:09 Cogentin - PO 0.5 mg HS KIRTI Administration Budesonide/Formoterol Fumarate 2 puff 03/19/18 22:00 04/07/18 21:09 Symbicort 80/4.5mcg - IH 2 inh BID KIRTI Administration Citalopram Hydrobromide 20 mg 03/20/18 10:00 04/07/18 09:45 Celexa - PO 20 mg DAILY KIRTI Administration Diphenhydramine HCl 50 mg 03/19/18 15:04 Benadryl - PO HS PRN INSOMNIA Eucalyptus/Menthol/Phenol/Sorbitol 1 each 03/19/18 14:00 Cepastat Lozenge - MM Q4H PRN SORE THROAT Guaifenesin 10 ml 03/19/18 14:00 Robitussin Dm - PO Q6H PRN COUGH Hydroxyzine Pamoate 50 mg 03/19/18 14:00 Vistaril - PO Q4H PRN AGITATION Ibuprofen 400 mg 03/19/18 14:00 03/24/18 21:09 Motrin - PO 400 mg Q6H PRN Administration Pain Level 4-6 Levothyroxine Sodium 75 mcg 03/20/18 07:00 04/08/18 06:27 Synthroid - PO 75 mcg DAILY@0700 KIRTI Administration Lisinopril 10 mg 04/01/18 10:35 04/07/18 09:45 Prinivil PO 10 mg DAILY KIRTI Administration Loperamide HCl 4 mg 03/19/18 14:00 Imodium - PO Q6H PRN DIARRHEA Magnesium Citrate 300 ml 03/19/18 14:00 Citroma - PO Q48H PRN CONSTIPATION Magnesium Hydroxide 30 ml 03/19/18 14:00 Milk Of Magnesia - PO DAILY PRN CONSTIPATION Melatonin 5 mg 03/19/18 22:00 03/25/18 21:07 Melatonin PO 5 mg HS PRN Administration INSOMNIA Naphazoline HCl/Pheniramine Maleate 1 drop 04/05/18 22:00 04/08/18 06:27 Visine-A - OU 04/12/18 21:59 1 drop TID KIRTI Administration Nicotine 21 mg 03/20/18 10:00 04/07/18 09:45 Nicoderm Patch - TD Not Given DAILY KIRTI Nicotine Polacrilex 2 mg 03/19/18 14:00 Nicorette Gum - BUC Q2H PRN NICOTINE REPLACEMENT RX Multivit/Folic Acid/Iron 1 tab 03/20/18 10:00 04/07/18 09:45 Vitamins (Sjr) - PO 1 tab DAILY KIRTI Administration Pseudoephedrine/Triprolidine 1 combo 03/19/18 14:00 Actifed - PO TID PRN NASAL CONGESTION Quetiapine Fumarate 200 mg 03/19/18 22:00 04/07/18 21:09 Seroquel - PO 200 mg HS KIRTI Administration Thiamine HCl 100 mg 03/19/18 22:00 04/07/18 21:09 Vitamin B1 - PO 100 mg HS KIRTI Administration Medication(s) Change(s): No. Current Side Effect: No Lab tests ordered: No Lab tests reviewed: Yes Provider note:: Patient able to complete rehab on 04/08/18. He has met his treatment goals and will continue to address additional issues at [facility]. With the help of this program, patient is able to identify behaviors that contribute to relapsing. Patient reports finding that his current medications of seroquel 200mg qhs + Celexa 20mg + benadryl 50mg qhs + cogentin help with his mood, auditory hallucinations, and insomnia. A prescription for 30 days was sent to [place] [facility]. Patient is stable for discharge on 04/08/18. Total face to face time:: 35 Mental Status Exam - Mental Status Exam Alert and Oriented to: Time, Place, Person Cognitive Function: Good Patient Appearance: Well Groomed Mood: Hopeful Affect: Appropriate Patient Behavior: Appropriate, Cooperative Speech Pattern: Appropriate Voice Loudness: Normal Thought Process: Intact, Goal Oriented Thought Disorder: Not Present Hallucinations: Denies Suicidal Ideation: Denies Homicidal Ideation: Denies Insight/Judgement: Good Sleep: Well Appetite: Good Muscle strength/Tone: Normal Gait/Station: Normal Psychiatric Treatment Plan - Problem List (1) Alcohol dependence Current Visit: Yes (2) Cocaine dependence Current Visit: Yes Qualifiers: (3) Nicotine dependence Current Visit: Yes (4) Schizophrenia Current Visit: Yes (5) Insomnia Current Visit: Yes (6) Substance induced mood disorder Current Visit: Yes
[2018-04-08] MEDS: CITALOPRAM HYDROBROMIDE 20 MG TABLET (FP) PO SCH (09:59)
[2018-04-08] MEDS: ASPIRIN 81 MG CHEWABLE TABLETS PO SCH (09:59)
[2018-04-08] MEDS: PRENATAL VITAMINS W/ FOLIC ACID TABLET (FP) PO SCH (09:59)
[2018-04-08] MEDS: LISINOPRIL 10 MG TABLET (FP) PO SCH (09:59)
== END 2018-04-08 10:40 | disposition home or self-care (01) | DRG 772 ==
LOC: YASAS 13:30 → Y5N 13:31
PROVIDERS: ADMIT Psychiatry & Neurology Psychiatry; ATTEND Psychiatry & Neurology Psychiatry
PROC: HZ42ZZZ Group Counseling for Substance Abuse Treatment, Cognitive-Behavioral (ICD-10-PCS; principal; 2018-03-19)
DX: F10.20 Alcohol dependence, uncomplicated (principal); F14.20 Cocaine dependence, uncomplicated; F17.210 Nicotine dependence, cigarettes, uncomplicated; F20.9 Schizophrenia, unspecified; F19.24 Other psychoactive substance dependence with psychoactive substance-induced mood disorder; I10 Essential (primary) hypertension; G47.00 Insomnia, unspecified; H40.9 Unspecified glaucoma; J45.909 Unspecified asthma, uncomplicated; E78.5 Hyperlipidemia, unspecified; E66.9 Obesity, unspecified; Z68.36 Body mass index [BMI] 36.0-36.9, adult